=== PATIENT | female | born 1955 | race Caucasian/White ===

== ENCOUNTER 2017-12-14 18:18 | Emergency (ER) | payer SELFPAY ==
--- NOTE | 2017-12-14 18:52 | ED ---
Lower Extremity - HPI Summary HPI Summary: 62-year-old female presents with left ankle and hip pain today. States she tripped over stairs and twist her left ankle. She denies any head injury. She denies any neck pain. She denies any other injury. He took a Tylenol prior to arrival. She has history of osteoporosis. She denies any numbness or tingling. She denies any previous fracture to the area. She has not been able to place weight on the area. She denies any LOC or nausea or vomiting. She has pmh of HTN. - History of Current Complaint Chief Complaint: EDExtremityLower Stated Complaint: FALL Time Seen by Provider: 12/14/17 18:35 Pain Intensity: 5 - Allergies/Home Medications Allergies/Adverse Reactions: Allergies Allergy/AdvReac Type Severity Reaction Status Date / Time No Known Allergies Allergy Verified 12/14/17 18:24 Home Medications: Home Medications Calcium Carbonate/Vitamin D3 [Calcium 600/Vitamin D3] 2 tab PO DAILY 12/14/17 [ History Confirmed 12/14/17] Cholecalciferol TAB* [Vitamin D TAB*] 800 unit PO DAILY 12/14/17 [History Confirmed 12/14/17] Denosumab(NF) [Prolia(NF)] 60 mg .SEE ORDER SEE INSTRUCTIONS 12/14/17 [History Confirmed 12/14/17] Irbesartan/Hydrochlorothiazide [Irbesartan/Hydrochlorothi 150-12.5 mg] 1 tab PO DAILY 12/14/17 [History Confirmed 12/14/17] PMH/Surg Hx/FS Hx/Imm Hx Endocrine/Hematology History: Denies: Hx Anticoagulant Therapy Cardiovascular History: Reports: Hx Hypertension Infectious Disease History: No Infectious Disease History: Reports: Traveled Outside the [place] in Last 30 Days - Family History Known Family History: Positive: Hypertension - Social History Alcohol Use: Occasionally Substance Use Type: Reports: None Review of Systems Negative: Fever Negative: Chest Pain Negative: Shortness Of Breath Positive: Myalgia - left hip and ankle pain All Other Systems Reviewed And Are Negative: Yes Physical Exam Triage Information Reviewed: Yes Vital Signs On Initial Exam: Initial Vitals Temp Pulse Resp BP Pulse Ox 99.2 F 104 20 170/85 96 12/14/17 18:20 12/14/17 18:20 12/14/17 18:20 12/14/17 18:20 12/14/17 18:20 Vital Signs Reviewed: Yes Appearance: Positive: Well-Appearing Skin: Positive: Warm, Dry Head/Face: Positive: Normal Head/Face Inspection Eyes: Positive: Normal, Conjunctiva Clear ENT: Positive: Pharynx normal Respiratory/Lung Sounds: Positive: Clear to Auscultation, Breath Sounds Present Cardiovascular: Positive: Normal, RRR Musculoskeletal: Positive: Limited @ - left ankle and hip, Edema Left - malleolus, Other - tenderness over left lateral malleolus and left hip, good pulses, sensation grossly intact Neurological: Positive: Normal Psychiatric: Positive: Normal Procedures - Splinting Left Location: ankle Hand-Made Type: orthoglass Splint: sugar-tong Pre-Proc Neuro Vasc Exam: normal Post-Proc Neuro Vasc Exam: normal Diagnostics - Vital Signs Vital Signs Temp Pulse Resp BP Pulse Ox 12/14/17 18:20 99.2 F 104 20 170/85 96 - Laboratory Lab Statement: Any lab studies that have been ordered have been reviewed, and results considered in the medical decision making process. Lower Extremity Course/Dx - Course Course Of Treatment: 62-year-old female presents with left ankle and hip pain today. States she tripped over stairs and twist her left ankle. She denies any head injury. She denies any neck pain. She denies any other injury. He took a Tylenol prior to arrival. She has history of osteoporosis. She denies any numbness or tingling. She denies any previous fracture to the area. She has not been able to place weight on the area. She denies any LOC or nausea or vomiting. She has pmh of HTN. on exam has edema to lateral malleolus of left ankle, neurovascular intact. tenderness left hip. xray shows fibula fx. hip xray read by me and dr alvarenga as no fx. place in sugar tong splint. patient understand and agrees with plan. - Diagnoses Differential Diagnosis/HQI/PQRI: Positive: Fracture (Closed), Sprain, Strain Provider Diagnoses: Fibula fracture, Fall, Hip pain Discharge - Sign-Out/Discharge Documenting (check all that apply): Patient Departure - Discharge Plan Condition: Good Disposition: HOME Prescriptions: oxyCODONE/Acetamin 5/325 MG* [Percocet 5/325 TAB*] 1 tab PO Q6H PRN #16 tab MDD 4 PRN Reason: Pain Patient Education Materials: Ankle Fracture (ED) Referrals: No Primary Care Phys,NOPCP [Primary Care Provider] - Additional Instructions: try to stay off leg as much as possible Keep splint on area and keep dry Follow up with ortho Use ibuprofen for pain every 6 hours and use narcotic for breakthrough pain Ice, elevate Return to ED if develop any new or worsening symptoms - Billing Disposition and Condition Condition: GOOD Disposition: Home
[2017-12-14] MEDS ORDERED: oxyCODONE/Acetamin 5/325 MG* TAB PO ONE (19:52)
[2017-12-14 20:28] VITALS: BP 155/88
--- NOTE | 2017-12-15 07:47 | RAD ---
Indication: LEFT ankle pain post fall. Swelling over the lateral malleolus. Comparison: No relevant prior exams available on the [facility] [place] PACS for comparison. Technique: AP, mortise, and lateral views LEFT ankle. Report: Oblique fracture through the distal metaphysis of the fibula terminating inferiorly at the level of the ankle mortise. Negative for significant displacement. No additional fractures are evident. The ankle mortise remains congruent. Severe soft tissue swelling over the lateral and anterior aspects. IMPRESSION: #. Jacob type B lateral malleolus fracture. R0
--- NOTE | 2017-12-15 07:49 | RAD ---
Indication: LEFT hip pain post fall. Comparison: No relevant prior exams available on the [facility] [place] PACS for comparison. Technique: AP and crosstable lateral views LEFT femur. AP pelvis, AP and frog-leg lateral views LEFT hip. Report: Negative for pelvic fracture or joint diastases. Normally located LEFT hip. No radiographic evidence for LEFT fracture. Preserved joint space. Negative for fracture of the LEFT femur. Unremarkable soft tissue contours. IMPRESSION: #. No radiographic evidence for LEFT hip fracture. Negative for LEFT femur fracture. R0
--- NOTE | 2017-12-15 07:49 | RAD ---
Indication: LEFT hip pain post fall. Comparison: No relevant prior exams available [place] the [facility] [place] for [place]. Technique: AP and crosstable lateral views LEFT femur. AP pelvis, AP and frog-leg lateral views LEFT hip. Report: Negative for pelvic fracture or joint diastases. Normally located LEFT hip. No radiographic evidence for LEFT fracture. Preserved joint space. Negative for fracture of the LEFT femur. Unremarkable soft tissue contours. IMPRESSION: #. No radiographic evidence for LEFT hip fracture. Negative for LEFT femur fracture. R0
== END 2017-12-14 19:50 | disposition home or self-care (01) ==
LOC: ED 18:18
DX: S82.402A Unspecified fracture of shaft of left fibula, initial encounter for closed fracture (principal); M25.552 Pain in left hip; W19.XXXA Unspecified fall, initial encounter; Y92.9 Unspecified place or not applicable; M25.559 Pain in unspecified hip
CPT/HCPCS: 99282